=== PATIENT | female | born 1990 | race Hispanic/Latino ===

== ENCOUNTER 2017-01-07 09:30 | Emergency (ER) | payer SELFPAY ==
[2017-01-07 09:38] VITALS: BP 123/71; PULSE 97; RESP 16; TEMP 98.3; O2SAT 99; BMI 26.6
[2017-01-07] MEDS ORDERED: Oxycodone/Acetaminophen 5/325 mg Tab PO STA (09:49)
--- NOTE | 2017-01-07 09:54 | ED PDOC ---
Arrival/HPI - General Historian: Patient - General Chief Complaint: Dental Pain Time Seen by Provider: 01/07/17 09:32 - History of Present Illness Narrative History of Present Illness (Text): 01/07/17 09:50 26 y/o female, no pmh, allergic to cephalosporin?, c/o rt. upper molar pain x 1 day. Pt. stated that she rt. upper molar dental caries, unable to see the dentist, noticed the pain and swelling for the past 24 hour, no eye swelling or change in vision, no pain medication taken at home, no dizziness, no difficulty swallowing, no rash, no numbness or tingling, no other medical or psychological complaints. (Elier Zelaya) Past Medical History - Provider Review Nursing Documentation Reviewed: Yes - Psychiatric Hx Substance Use: No - Surgical History Other/Comment: left ankle x16 years ago Family/Social History - Physician Review Nursing Documentation Reviewed: Yes Family/Social History: Unknown Family HX Smoking Status: Current Some Days Smoker Hx Alcohol Use: No Hx Substance Use: No Allergies/Home Meds Allergies/Adverse Reactions: Allergies cefuroxime axetil [From Ceftin] Allergy (Verified 01/07/17 09:38) RASH Review of Systems - Review of Systems Constitutional: absent: Fatigue, Fevers Eyes: absent: Vision Changes ENT: Other (dental pain). absent: Hearing Changes Respiratory: absent: Cough Cardiovascular: absent: Chest Pain Gastrointestinal: absent: Abdominal Pain, Nausea, Vomiting Skin: absent: Rash, Pruritis, Skin Lesions, Laceration, Abscess, Ulcer, Cellulitis Neurological: absent: Headache, Dizziness, Focal Weakness, Speech Changes Physical Exam Vital Signs Reviewed: Yes Temperature: Afebrile Blood Pressure: Normal Pulse: Regular Respiratory Rate: Normal Appearance: Positive for: Well-Appearing, Non-Toxic, Comfortable Pain Distress: Severe Mental Status: Positive for: Alert and Oriented X 3 - Systems Exam Head: Present: Atraumatic, Normocephalic Pupils: Present: PERRL Extroacular Muscles: Present: EOMI Conjunctiva: Present: Normal Ears: Present: NORMAL TM, Normal Canal. No: Erythema Mouth: Present: Moist Mucous Membranes Pharnyx: Present: Other (visible multiple dental caries on the rt. upper molar with no gingivitis with no facial cellulitis or streaking, mild rt. facial swelling, no regional lymphenapathy. ). No: ERYTHEMA, EXUDATE, TONSILS ENLARGED , Uvular Deviation Neck: Present: Normal Range of Motion Respiratory/Chest: Present: Clear to Auscultation, Good Air Exchange. No: Respiratory Distress, Accessory Muscle Use Cardiovascular: Present: Regular Rate and Rhythm, Normal S1, S2. No: Murmurs Abdomen: Present: Normal Bowel Sounds. No: Tenderness, Distention, Peritoneal Signs Back: Present: Normal Inspection Upper Extremity: No: Cyanosis, Edema Lower Extremity: No: Edema Neurological: Present: GCS=15, Speech Normal, Motor Func Grossly Intact, Gait Normal, Memory Normal Skin: Present: Warm, Dry, Normal Color. No: Rashes Lymphatic: No: Cervical Adenopathy Psychiatric: Present: Alert, Oriented x 3, Normal Insight, Normal Concentration Vital Signs Temp Pulse Resp BP Pulse Ox 01/07/17 09:32 98.3 F 97 H 16 123/71 99 Medical Decision Making ED Course and Treatment: 01/07/17 09:54 -toradol IM, percocet, viscous lidocaine swish and spit, clindamycin -Pt. advised outpatient oral antibiotic with the NSAID for pain plus outpatient dentist follow up within 2 days. -Discharge home with clindamycin, ibuprofen, salt water gargling, soft food diet , stay hydrated, follow up with your own pmd and dentist within 2 days, return to the ER for any new or worsening signs or symptoms. (Elier Zelaya) I was available for consultation during PA evaluation. The chart was reviewed by me, and I agree with disposition. The documented history was done by the physician stockroom clerk. The documented physical exam was done by the physician stockroom clerk. The documented procedures were done by the physician stockroom clerk. (Jignesh Meeks) - Medication Orders Current Medication Orders: Discontinued Medications Clindamycin HCl (Cleocin) 300 mg PO STAT STA PRN Reason: Protocol Stop: 01/07/17 09:50 Last Admin: 01/07/17 10:01 Dose: 300 MG Ketorolac Tromethamine (Toradol) 60 mg IM STAT STA Stop: 01/07/17 09:50 Last Admin: 01/07/17 10:01 Dose: 60 MG IM Administration Charges Document 01/07/17 10:01 SE (Rec: 01/07/17 10:01 SE [id number]) Injection Site MAR Injection Site Right Vastus Lateralis Charges for Administration # of IM Administrations 1 Lidocaine HCl (Lidocaine 2% Viscous) 15 ml PO STAT STA Stop: 01/07/17 09:50 Last Admin: 01/07/17 10:01 Dose: 15 ML Oxycodone/Acetaminophen (Percocet 5/325 Mg Tab) 1 tab PO STAT STA Stop: 01/07/17 09:50 Last Admin: 01/07/17 10:00 Dose: 1 TAB - PA / PHOTO MASK PROCESSOR / Resident Statement MD/DO has reviewed & agrees with the documentation as recorded. Disposition/Present on Arrival - Present on Arrival Any Indicators Present on Arrival: No History of DVT/PE: No History of Uncontrolled Diabetes: No Urinary Catheter: No History of Decub. Ulcer: No History Surgical Site Infection Following: None - Disposition Have Diagnosis and Disposition been Completed?: Yes Disposition Time: 09:56 Patient Plan: Discharge - Disposition Diagnosis: Pain, dental, Dental caries Disposition: HOME/ ROUTINE Condition: GOOD Additional Instructions: Discharge home with clindamycin, ibuprofen, salt water gargling, soft food diet , stay hydrated, follow up with your own pmd and dentist within 2 days, return to the ER for any new or worsening signs or symptoms. Prescriptions: Clindamycin [Cleocin] 300 mg PO QID #36 cap Ibuprofen [Motrin Tab] 800 mg PO TID PRN #24 tab PRN Reason: Other Referrals: Denver Grace DMD [Staff Provider] - Follow up with primary [facility] [place] [Outside] - Follow up with primary Forms: WORK NOTE
== END 2017-01-07 10:06 | disposition home or self-care (01) ==
LOC: ED 09:30
DX: K02.9 Dental caries, unspecified (principal); K08.89 Other specified disorders of teeth and supporting structures
CPT/HCPCS: 96372; 99283; J1885

== ENCOUNTER 2017-04-22 11:50 | Emergency (ER) | payer SELFPAY ==
[2017-04-22 11:50] VITALS: BMI 26.6
[2017-04-22 12:08] VITALS: BP 112/78; PULSE 94; RESP 16; TEMP 98.5; O2SAT 97
[2017-04-22] MEDS ORDERED: Oxycodone/Acetaminophen 5/325 mg Tab PO STA (12:29)
--- NOTE | 2017-04-22 12:29 | ED PDOC ---
Arrival/HPI - General Historian: Patient - History of Present Illness Time/Duration: < week Symptom Onset: Gradual Symptom Course: Worsening Quality: Aching Severity Level: 5 <Rodrigo Estrella - Last Filed: 04/22/17 13:11> <Kenji Roque - Last Filed: 04/22/17 13:27> - General Chief Complaint: Dental Pain Time Seen by Provider: 04/22/17 11:58 - History of Present Illness Narrative History of Present Illness (Text): 04/22/17 12:40 26yo F with no significant PMHx here for evaluation of dental pain. Pain started 2 days ago, located in the right side of upper mouth. States that she has had similar symptoms in the past and was told she had a dental abscess, was given oral antibiotics and it resolved. She states that she takes OTC ibuprofen 600mg for pain when moderate relief. She denies any fevers, no chills. No headaches. No neuro deficits. She denies the possibility of being . (Rodrigo Estrella) Past Medical History - Provider Review Nursing Documentation Reviewed: Yes - Past History Past History: No Previous - Psychiatric Hx Substance Use: Yes (marijuana) - Surgical History Other/Comment: left ankle x16 years ago <Rodrigo Estrella - Last Filed: 04/22/17 13:11> Family/Social History - Physician Review Nursing Documentation Reviewed: Yes Family/Social History: No Known Family HX Smoking Status: Light Smoker < 10 Cigarettes Daily Hx Alcohol Use: Yes Frequency of alcohol use: Socially Hx Substance Use: Yes (marijuana) <Rodrigo Estrella - Last Filed: 04/22/17 13:11> Allergies/Home Meds <Rodrigo Estrella - Last Filed: 04/22/17 13:11> <Kenji Roque - Last Filed: 04/22/17 13:27> Allergies/Adverse Reactions: Allergies cefuroxime axetil [From Ceftin] Allergy (Verified 01/07/17 09:38) RASH Review of Systems - Physician Review All systems were reviewed & negative as marked: Yes - Review of Systems Constitutional: Normal. absent: Fevers Eyes: Normal Respiratory: absent: SOB, Cough Gastrointestinal: absent: Abdominal Pain, Nausea, Vomiting Genitourinary Female: absent: Dysuria Musculoskeletal: absent: Back Pain Neurological: absent: Dizziness <SameerRodrigo - Last Filed: 04/22/17 13:11> Physical Exam Vital Signs Reviewed: Yes Temperature: Afebrile Blood Pressure: Normal Pulse: Regular Respiratory Rate: Normal Appearance: Positive for: Well-Appearing, Comfortable Pain Distress: Mild Mental Status: Positive for: Alert and Oriented X 3 - Systems Exam Head: Present: Atraumatic, Normocephalic Extroacular Muscles: Present: EOMI Mouth: Present: Moist Mucous Membranes, Other (Right upper mouth sore. No active drainage. No open sore. Tender to palpation.) Pharnyx: No: ERYTHEMA, EXUDATE, TONSILS ENLARGED Neck: No: JVD Respiratory/Chest: Present: Clear to Auscultation. No: Accessory Muscle Use Abdomen: No: Tenderness, Distention, Rebound, Guarding Upper Extremity: Present: Normal Inspection. No: Edema Lower Extremity: Present: Normal Inspection. No: Edema, CALF TENDERNESS Neurological: Present: GCS=15 Skin: Present: Warm, Dry, Normal Color. No: Rashes Psychiatric: Present: Alert, Oriented x 3 <Rodrigo Estrella - Last Filed: 04/22/17 13:11> Medical Decision Making <Rodrigo Estrella - Last Filed: 04/22/17 13:11> <Kenji Roque - Last Filed: 04/22/17 13:27> ED Course and Treatment: 04/22/17 13:00 26yo F with Dental Pain - Percocet x1 in ED - Pen V K 500mg given one dose in ED - Requests Work note for today - Discharge home on Pen V K 500mg q6 x 7 days; Ibuprofen for pain management (Rodrigo Estrella) Patient Seen With Resident: In agreement with resident note which contains more details about the patient. Patient was seen and evaluated with resident. Came up with plan and treatment together. A 26 year old female with dental pain for the past two days. Additional HPI as noted by resident. On physical exam, right upper mouth is tender to palpation, no active drainage, no open sore. No facial swelling or asymmetry or erythema or tenderness. Airway is normal with no neck swelling. Will give patient Penicillin and Percocet. 04/22/17 13:25 Will d/c on Pen VK and ibuprofen and f/u dentist. (Kenji Roque) - Medication Orders Current Medication Orders: Discontinued Medications Oxycodone/Acetaminophen (Percocet 5/325 Mg Tab) 1 tab PO STAT STA Stop: 04/22/17 12:30 Last Admin: 04/22/17 12:43 Dose: 1 tab Penicillin V Potassium (Penicillin Vk Tab) 500 mg PO STAT STA PRN Reason: Protocol Stop: 04/22/17 12:30 Last Admin: 04/22/17 12:44 Dose: 500 mg - PA / [employer] / Resident Statement / has reviewed & agrees with the documentation as recorded. / has examined the patient and agrees with the treatment plan. <Rodrigo Estrella - Last Filed: 04/22/17 13:11> - PA / [employer] / Resident Statement / has reviewed & agrees with the documentation as recorded. / has examined the patient and agrees with the treatment plan. - Scribe Statement The provider has reviewed the documentation as recorded by the Scribe <Kenji Roque - Last Filed: 04/22/17 13:27> - Scribe Statement Nicko Cordova Provider Scribe Attestation: All medical record entries made by the Scribe were at my direction and personally dictated by me. I have reviewed the chart and agree that the record accurately reflects my personal performance of the history, physical exam, medical decision making, and the department course for this patient. I have also personally directed, reviewed, and agree with the discharge instructions and disposition. (Kenji Roque) Disposition/Present on Arrival - Present on Arrival Any Indicators Present on Arrival: No History of DVT/PE: No History of Uncontrolled Diabetes: No Urinary Catheter: No History of Decub. Ulcer: No History Surgical Site Infection Following: None - Disposition Have Diagnosis and Disposition been Completed?: Yes Disposition Time: 12:34 Patient Plan: Discharge <Rodrigo Estrella - Last Filed: 04/22/17 13:11> <Kenji Roque - Last Filed: 04/22/17 13:27> - Disposition Diagnosis: Dental infection Disposition: HOME/ ROUTINE Condition: GOOD Discharge Instructions (ExitCare): Dental Abscess (ED) Additional Instructions: 1. Follow up with your PMD and Dentist within 2 days. 2. Take antibiotics as prescribed to completion 3. Take ibuprofen as needed for pain 4. Return to the ER with any concerning symptoms Prescriptions: Ibuprofen [Motrin Tab] 600 mg PO Q8 PRN #20 tab PRN Reason: Pain, Mild (1-3) Penicillin VK [Pen-Vee K] 500 mg PO Q6 #28 tab Referrals: PCP,NO [Primary Care Provider] - Follow up with primary Forms: [facility] (Col[place]ian), WORK NOTE
== END 2017-04-22 12:56 | disposition home or self-care (01) ==
LOC: ED 11:50
DX: K04.7 Periapical abscess without sinus (principal)